=== PATIENT | female | born 1955 | race Native Hawaiian/Other Pacific Islander ===

== ENCOUNTER 2016-06-20 15:00 | Emergency (ER) | payer OTHER ==
[~2016-06-20] VITALS: Ht 165.1 cm; Wt 67.6 kg
[~2016-06-20 15:00] MED LIST: ASA LO-DOSE81 MG PO; ATROVENT NAS0.03 % INH; BENTYL10 MG PO; BENZONATATE200 MG PO; BUDE1AER5 INH; CLOP75TA2 PO; CODEINE PO; COMBIVENT INH; COZAAR100 MG PO; FLUD0.1T PO; FLUT0.05 NAS; FLUTICASONE50 MCG INH; GABA400C2 PO; HYDR-2748 PO; INDO25CA21 PO; LEVAQUIN750 MG PO; METO10TA26 PO; METO50TA63 PO; MOBIC15 MG PO; MONT10TA PO; NITROSTAT0.4 MG SL; PANT40TA PO; PEPCID40 MG PO; PERCOCET1 TA3 PO; POT CHLORIDE10 MEQ OR; PREDNISONE5 M1 PO; PROMETHAZINE25 MG PO; QUETIAPINE200 MG OR; SERT50TA PO; SIMV40TA57; SIMV40TA57 PO; SPIR50TA8 PO; TRAM50TA PO; XANAX2 MG PO; ZOLP10TA2 PO; [UNRECOGNIZED DRUG - CODE] OR; [UNRECOGNIZED DRUG - OTHER] PO
[2016-06-20 15:13] VITALS: BP 117/59; TEMP 98.8
[2016-06-20 15:55] LABS: PLATELET COUNT 344 K/uL (152-353)
[2016-06-20 16:15] LABS: POTASSIUM 3.5 mmol/L (3.6-5.2); SODIUM 120 mmol/L (136-145)
[2016-06-20 16:40] LABS: PARTIAL THROMBOPLASTIN TIME 27.9 SECONDS (24.5-33.6)
== END 2016-06-20 16:00 | disposition left against medical advice (07) ==
LOC: ED 15:00
PROVIDERS: Emergency Medicine
DX: R56.9 Unspecified convulsions (principal); R07.89 Other chest pain; R06.02 Shortness of breath
CPT/HCPCS: 36415; 80053; 82550; 82553; 83880; 84484; 85027; 85610; 85730; 99283

== ENCOUNTER 2016-09-28 21:44 | Emergency (ER) | payer OTHER ==
[~2016-09-28] VITALS: Ht 165.1 cm; Wt 72.6 kg
[2016-09-28] MEDS ORDERED: OMEPRAZOLE20 M1 OR (22:13)
[2016-09-28] MEDS ORDERED: LOSA50TA PO (22:13)
[2016-09-28] MEDS ORDERED: GABA400C2 PO (22:14)
[2016-09-28] MEDS ORDERED: SEROQUEL300 MG OR (22:14)
[2016-09-28] MEDS ORDERED: GLIP10TA55 PO (22:15)
[2016-09-28 23:41] VITALS: BP 104/65; TEMP 98.4
== END 2016-09-28 23:41 | disposition home or self-care (01) ==
LOC: ED 21:44
DX: S93.492A Sprain of other ligament of left ankle, initial encounter (principal); S93.692A Other sprain of left foot, initial encounter; S86.812A Strain of other muscle(s) and tendon(s) at lower leg level, left leg, initial encounter; W18.39XA Other fall on same level, initial encounter; Y92.098 Other place in other non-institutional residence as the place of occurrence of the external cause; Y93.89 Activity, other specified; Y99.8 Other external cause status
CPT/HCPCS: 96372; 99283; J1885

== ENCOUNTER 2017-01-11 21:33 | Emergency (ER) | payer OTHER ==
[~2017-01-11] VITALS: Ht 165.1 cm; Wt 69.4 kg
[~2017-01-11 21:33] MED LIST changes: +GLIP10TA55 PO; +LOSA50TA PO; +OMEPRAZOLE20 M1 OR; +SEROQUEL300 MG OR
[2017-01-11 23:28] VITALS: BP 111/58; TEMP 98.6
== END 2017-01-11 23:36 | disposition home or self-care (01) ==
LOC: ED 21:33
DX: S51.812A Laceration without foreign body of left forearm, initial encounter (principal); W22.8XXA Striking against or struck by other objects, initial encounter; Y92.89 Other specified places as the place of occurrence of the external cause
CPT/HCPCS: 99282

== ENCOUNTER 2017-04-08 14:43 | Emergency (ER) | payer OTHER ==
[~2017-04-08] VITALS: Ht 165.1 cm; Wt 61.2 kg
[2017-04-08 15:22] LABS: PLATELET COUNT 314 K/uL (152-353)
[2017-04-08 15:30] LABS: POTASSIUM 3.4 mmol/L (3.6-5.2); SODIUM 128 mmol/L (136-145)
[2017-04-08 16:09] VITALS: BP 118/74; TEMP 97.8
== END 2017-04-08 16:13 | disposition home or self-care (01) ==
LOC: ED 14:43
DX: S20.211A Contusion of right front wall of thorax, initial encounter (principal)
CPT/HCPCS: 36415; 80053; 85027; 93005; 99283

== ENCOUNTER 2017-08-19 16:08 | Emergency (ER) | payer OTHER ==
[~2017-08-19] VITALS: Ht 165.1 cm; Wt 63.5 kg
[2017-08-19 16:22] VITALS: TEMP 97.5
[2017-08-19 17:50] VITALS: BP 112/70
== END 2017-08-19 18:12 | disposition home or self-care (01) ==
LOC: ED 16:08
DX: S96.811A Strain of other specified muscles and tendons at ankle and foot level, right foot, initial encounter (principal); S20.212A Contusion of left front wall of thorax, initial encounter; S20.211A Contusion of right front wall of thorax, initial encounter; S90.01XA Contusion of right ankle, initial encounter; S90.31XA Contusion of right foot, initial encounter; R51 Headache; W18.39XA Other fall on same level, initial encounter; Y92.098 Other place in other non-institutional residence as the place of occurrence of the external cause
CPT/HCPCS: 80307; 80320; 96372; 99283; J1885

== ENCOUNTER 2018-06-02 17:45 | Emergency (ER) | payer OTHER ==
[~2018-06-02] VITALS: Ht 157.5 cm; Wt 64.4 kg
[2018-06-02 18:02] VITALS: BP 138/77; TEMP 97.2
[2018-06-02 18:48] LABS: PLATELET COUNT 253 K/uL (152-353)
[2018-06-02 18:54] LABS: POTASSIUM 3.7 mmol/L (3.6-5.2)
== END 2018-06-02 19:51 | disposition home or self-care (01) ==
LOC: ED 17:45
PROVIDERS: Internal Medicine
DX: E87.1 Hypo-osmolality and hyponatremia (principal); R41.82 Altered mental status, unspecified
CPT/HCPCS: 36415; 80053; 85027; 99283

== ENCOUNTER 2018-08-04 17:04 | Emergency (ER) | payer OTHER ==
[~2018-08-04] VITALS: Ht 157.5 cm; Wt 64.4 kg
[2018-08-04 19:15] VITALS: BP 106/75; TEMP 10098
== END 2018-08-04 19:19 | disposition home or self-care (01) ==
LOC: ED 17:04
DX: R05 Cough (principal); M54.5 Low back pain
CPT/HCPCS: 36415; 87502; 99283; J1885

== ENCOUNTER 2019-01-03 16:19 | Emergency (ER) | payer OTHER ==
[~2019-01-03] VITALS: Ht 165.1 cm; Wt 59.4 kg
[2019-01-03 16:24] VITALS: TEMP 97.9
[2019-01-03 16:55] LABS: PLATELET COUNT 321 K/uL (152-353)
[2019-01-03 17:30] VITALS: BP 94/50
[2019-01-03 17:54] LABS: SODIUM 125 mmol/L (136-145)
== END 2019-01-03 17:52 | disposition home or self-care (01) ==
LOC: ED 16:19
PROVIDERS: Student in an Organized Health Care Education/Training Program
DX: R55 Syncope and collapse (principal)
CPT/HCPCS: 36415; 80053; 83735; 84443; 84484; 85027; 93005; 99283

== ENCOUNTER 2019-01-09 08:32 | Outpatient (CLI) | payer OTHER | END 2019-01-09 23:34 | disposition home or self-care (01) | LOC: US 08:32 | DX: R10.30 Lower abdominal pain, unspecified (principal); N93.9 Abnormal uterine and vaginal bleeding, unspecified ==

== ENCOUNTER 2019-02-21 15:00 | Inpatient (IN) | payer OTHER ==
[~2019-02-21] VITALS: Ht 165.1 cm; Wt 67.8 kg
[2019-02-21 16:00] VITALS: BP 106/56; TEMP 97.6
[2019-02-21 17:10] LABS: POTASSIUM 2.6 mmol/L (3.6-5.2)
[2019-02-21 17:11] LABS: PLATELET COUNT 316 K/uL (152-353)
[2019-02-21 18:32] VITALS: BP 106/56; TEMP 97.6; Ht 165.1 cm; Wt 67.8 kg
[2019-02-21 20:00] VITALS: BP 97/56; TEMP 97.2
[2019-02-22] VITALS: BP 114/70; TEMP 97.4
[2019-02-22 04:00] VITALS: BP 95/69; TEMP 98.3
[2019-02-22 04:26] LABS: PLATELET COUNT 291 K/uL (152-353)
[2019-02-22 04:44] LABS: POTASSIUM 3.8 mmol/L (3.6-5.2)
[2019-02-22 08:00] VITALS: BP 108/69
[2019-02-22 12:00] VITALS: BP 104/61; TEMP 97.6
[2019-02-22] MEDS ORDERED: IPRA18AE INH (12:40)
[2019-02-22] MEDS ORDERED: METOCLOPRAM10 MG PO (12:47)
[2019-02-22] MEDS ORDERED: KAPSPARGO SPRIN50 MG PO (12:48)
[2019-02-22] MEDS ORDERED: TRAMADOL HYDROC50 MG PO (12:50)
[2019-02-22] MEDS ORDERED: PANTOPRAZOLE 40MG TA PO (12:51)
[2019-02-22] MEDS ORDERED: XANAX2 MG PO (12:52)
[2019-02-22] MEDS ORDERED: RANI150T78 PO (12:54)
[2019-02-22] MEDS ORDERED: SERT100T PO (12:56)
[2019-02-22] MEDS ORDERED: GABA400C2 PO (13:00)
[2019-02-22 16:00] VITALS: BP 121/71; TEMP 97.3
[2019-02-22 20:00] VITALS: BP 118/68; TEMP 98.6
== END 2019-02-22 20:22 | disposition left against medical advice (07) | DRG 315 ==
LOC: MED/SURG 15:00
PROVIDERS: ADMIT Internal Medicine
DX: I95.89 Other hypotension (principal); E87.1 Hypo-osmolality and hyponatremia; E87.6 Hypokalemia; J43.8 Other emphysema; I10 Essential (primary) hypertension; I25.10 Atherosclerotic heart disease of native coronary artery without angina pectoris; R55 Syncope and collapse; A08.8 Other specified intestinal infections; Z72.0 Tobacco use; K21.9 Gastro-esophageal reflux disease without esophagitis; E11.42 Type 2 diabetes mellitus with diabetic polyneuropathy; F41.8 Other specified anxiety disorders; N32.89 Other specified disorders of bladder
CPT/HCPCS: 36415; 80053; 81000; 82272; 82533; 83735; 84443; 85027; 85610; 87015; 87045; 87088; 87324; 87328; 87329; 87449; 87899; 93005; J0744; J1650; Q9963

== ENCOUNTER 2019-06-01 05:20 | Outpatient (CLI) | payer OTHER ==
[~2019-06-01 05:20] MED LIST changes: +IPRA18AE INH; +KAPSPARGO SPRIN50 MG PO; +METOCLOPRAM10 MG PO; +PANTOPRAZOLE 40MG TA PO; +RANI150T78 PO; +SERT100T PO; +TRAMADOL HYDROC50 MG PO
== END 2019-06-01 05:28 | disposition short-term general hospital (02) ==
LOC: AMB 05:20
DX: R07.89 Other chest pain (principal); W18.09XA Striking against other object with subsequent fall, initial encounter; Y92.89 Other specified places as the place of occurrence of the external cause
CPT/HCPCS: A0425; A0427

== ENCOUNTER 2019-06-01 05:31 | Emergency (ER) | payer OTHER ==
[~2019-06-01] VITALS: Ht 165.1 cm; Wt 68.0 kg
[2019-06-01 05:31] VITALS: TEMP 96.6
[2019-06-01 06:40] LABS: PLATELET COUNT 502 K/uL (152-353)
[2019-06-01 06:45] LABS: POTASSIUM 3.4 mmol/L (3.6-5.2)
[2019-06-01 09:09] VITALS: BP 121/74
== END 2019-06-01 09:09 | disposition home or self-care (01) ==
LOC: ED 05:31
PROVIDERS: Family Medicine
DX: S22.078A Other fracture of T9-T10 vertebra, initial encounter for closed fracture (principal); N39.0 Urinary tract infection, site not specified; E87.6 Hypokalemia; W18.09XA Striking against other object with subsequent fall, initial encounter; F51.3 Sleepwalking [somnambulism]; Y92.89 Other specified places as the place of occurrence of the external cause
CPT/HCPCS: 80053; 81000; 85027; 87086; 87088; 96360; 96365; 99284; J0744; Q9963

== ENCOUNTER 2019-06-02 18:07 | Emergency (ER) | payer OTHER ==
[~2019-06-02] VITALS: Ht 165.1 cm; Wt 68.0 kg
[2019-06-02 18:39] VITALS: BP 110/66; TEMP 98.1
[2019-06-02 20:53] LABS: PLATELET COUNT 410 K/uL (152-353)
[2019-06-02 20:58] LABS: POTASSIUM 3.7 mmol/L (3.6-5.2); SODIUM 121 mmol/L (136-145)
[2019-06-02 21:17] LABS: PARTIAL THROMBOPLASTIN TIME 25.6 SECONDS (24.5-33.6)
== END 2019-06-02 21:54 | disposition home or self-care (01) ==
LOC: ED 18:07
PROVIDERS: Hospitalist
DX: E86.0 Dehydration (principal); D72.828 Other elevated white blood cell count; R07.89 Other chest pain
CPT/HCPCS: 80053; 82550; 82553; 83880; 84484; 85027; 85610; 85730; 93005; 96375; 99284; J1885; J2270; J2405

== ENCOUNTER 2019-07-02 11:01 | Outpatient (CLI) | payer OTHER | END 2019-07-02 19:38 | disposition home or self-care (01) | LOC: MRI 11:01 | DX: M54.6 Pain in thoracic spine (principal); S22.070A Wedge compression fracture of T9-T10 vertebra, initial encounter for closed fracture ==

== ENCOUNTER 2019-10-25 17:12 | Emergency (ER) | payer OTHER ==
[~2019-10-25] VITALS: Ht 165.1 cm; Wt 68.0 kg
[~2019-10-25 17:12] MED LIST changes: -SEROQUEL300 MG OR; +SEROQUEL300 MG PO
[2019-10-25] MEDS ORDERED: ONDA4TAB3 PO (17:32)
[2019-10-25] MEDS ORDERED: FURO40TA93 PO (17:33)
[2019-10-25] MEDS ORDERED: TIZA4TAB5 PO (17:33)
[2019-10-25] MEDS ORDERED: BUDE1AER5 INH (17:34)
[2019-10-25] MEDS ORDERED: HYDR-3182 PO (17:38)
[2019-10-25 17:49] LABS: PLATELET COUNT 402 K/uL (152-353)
[2019-10-25 17:55] LABS: POTASSIUM 3.7 mmol/L (3.6-5.2)
[2019-10-25 18:30] LABS: PARTIAL THROMBOPLASTIN TIME 24.5 SECONDS (24.5-33.6)
[2019-10-28 00:32] VITALS: BP 119/70; TEMP 98.8
[2019-10-28] MEDS ORDERED: TRAMADOL HYDROC50 MG PO (14:36)
[2019-10-28] MEDS ORDERED: HYDROCHLOROT12.5 M1 PO (14:36)
[2019-10-28] MEDS ORDERED: GABA400C2 PO (14:37)
[2019-10-28] MEDS ORDERED: SIMV40TA57 (14:37)
[2019-10-28] MEDS ORDERED: CLOP75TA2 PO (14:37)
[2019-10-28] MEDS ORDERED: [UNRECOGNIZED DRUG - CODE] PO (14:38)
[2019-10-28] MEDS ORDERED: ALPR0.5T24 PO (14:38)
[2019-10-28] MEDS ORDERED: HYDR50CA21 PO (14:41)
[2019-10-28] MEDS ORDERED: ALBU0.0813 INH (14:45)
== END 2019-10-28 18:05 | disposition short-term general hospital (02) ==
LOC: ED 17:12
PROVIDERS: Family Medicine
DX: F25.8 Other schizoaffective disorders (principal); F13.90 Sedative, hypnotic, or anxiolytic use, unspecified, uncomplicated; Z03.818 Encounter for observation for suspected exposure to other biological agents ruled out
CPT/HCPCS: 80053; 80307; 80320; 80329; 81000; 85027; 85610; 85730; 87635; 93005; 96372; 99285; J1200; J1630; J3486; U0002

== ENCOUNTER 2020-09-14 14:14 | Inpatient (IN) | payer OTHER ==
[~2020-09-14] VITALS: Ht 165.1 cm; Wt 60.5 kg
[2020-09-14 14:14] VITALS: BP 130/72; TEMP 97.3
[~2020-09-14 14:14] MED LIST changes: +ALBU0.0813 INH; +ALPR0.5T24 PO; +FURO40TA93 PO; +HYDR-3182 PO; +HYDR50CA21 PO; +HYDROCHLOROT12.5 M1 PO; +ONDA4TAB3 PO; +TIZA4TAB5 PO; +[UNRECOGNIZED DRUG - CODE] PO
[2020-09-14 14:46] LABS: PLATELET COUNT 315 K/uL (152-353)
[2020-09-14 14:54] LABS: POTASSIUM 3.1 mmol/L (3.6-5.2)
[2020-09-14 15:00] VITALS: BP 144/72
[2020-09-14 15:45] VITALS: BP 141/85
[2020-09-14 16:30] VITALS: BP 136/88
[2020-09-14 18:56] VITALS: BP 114/56; TEMP 98.3; Ht 165.1 cm; Wt 60.5 kg
[2020-09-14 19:34] LABS: POTASSIUM 3.7 mmol/L (3.6-5.2)
[2020-09-14 20:00] VITALS: BP 104/54; TEMP 98.1
--- NOTE | 2020-09-14 20:40 | NUR ---
PT AWAKE LAYING IN BED WITH NO ACUTE DISTRESS NOTED, DENIES ANY PROBLEMS, RESP RATE NONLABORED, 22G IV INTACT TO R AC AND 22G IV INTACT TO L AC WITH NO PROBLEMS NOTED TO SITES, GAVE NIGHTLY PO MEDICATIONS WHOLE WITH WATER WITH NO PROBLEMS NOTED, WILL MONITOR CLOSELY, RAILS UP X3, BED IN LOW POSITION, CALL LIGHT IN REACH, ENCOURAGED TO CALL NEEDED OR FOR ASSIST TO BATHROOM PT ACKNOWLEDGES UNDERSTANDING.
--- NOTE | 2020-09-14 22:25 | NUR ---
AWAKE LAYING IN BED WITH NO ACUTE DISTRESS NOTED, PT DENIES ANY PROBLEMS OR NEEDS AT THIS TIME, OFFERED TO PLACE GOWN ON PT BUT PT DOES NOT WANT TO CHANGE INTO A GOWN. IV SITES INTACT TO R AND L AC WITH NO PROBLEMS NOTED AND FLUID ONGOING TO IV SITE IN R AC, RESP RATE NONLABORED, WILL MONITOR CLOSELY, RAILS UP X3, BED IN LOW POSITION, CALL LIGHT IN REACH, ENCOURAGED TO CALL NEEDED, PT ACKNOWLEDGES UNDERSTANDING.
[2020-09-15] VITALS (8 sets, daily range): BP systolic 93–135; BP diastolic 47–62; TEMP 97.6–98.5
[2020-09-15 03:07] LABS: POTASSIUM 3.4 mmol/L (3.6-5.2)
--- NOTE | 2020-09-15 03:29 | NUR ---
PT AWAKE LAYING IN BED ON L SIDE WITH NO S/S OF DISTRESS OR PROBLEMS NOTED, DENIES ANY NEEDS AT THIS TIME, RESP RATE NONLABORED, 22G IV LOCK INTACT TO L AC AND 22G IV INTACT TO R AC WITH FLUID INFUSING AT 100ML/HR NO PROBLEMS NOTED TO EITHER SITES, ENCOURAGED TO CALL NEEDED, RAILS UP X3, BED IN LOW POSITION WITH ALARM ON, WILL MONITOR CLOSELY, CALL LIGHT IN REACH. PT ACKNOWLEDGES UNDERSTANDING.
[2020-09-15 07:04] LABS: PLATELET COUNT 244 K/uL (152-353)
[2020-09-15 07:11] LABS: POTASSIUM 3.8 mmol/L (3.6-5.2)
--- NOTE | 2020-09-15 09:54 | NUR ---
WHILE IN PT'S ROOM MEASURING URINARY OUTPUT, RN FIELD NOTICED THAT IV IN LT AC WAS LEAKING BLOOD. IV WAS REMOVED BY RN FIELD AND NURSE WAS NOTIFIED OF REMOVAL.
[2020-09-15 13:30] LABS: POTASSIUM 3.4 mmol/L (3.6-5.2)
[2020-09-15 19:24] LABS: POTASSIUM 3.4 mmol/L (3.6-5.2)
--- NOTE | 2020-09-15 23:00 | NUR ---
RESTING WITH EYES CLOSED, NO S/S OF PAIN OR DISTRESS NOTED, RESP RATE NONLABORED, WILL MONITOR CLOSELY, RAILS UP X3, BED IN LOW POSITION, CALL LIGHT IN REACH.
[2020-09-16] VITALS: BP 102/65; TEMP 97.9
--- NOTE | 2020-09-16 01:26 | NUR ---
PT RESTING WITH EYES CLOSED IN BED IN POSITION OF COMFORT, AROUSES EASILY TO SHELL MACHINE OPERATOR BEING IN ROOM, NOTE PT NOW LONGER DROWSY NOTED AT START OF SHIFT AND SHELL MACHINE OPERATOR IS NOW ABLE TO UNDERSTAND MOST OF WHAT PT SAYS, DISORIENTED TO PLACE AND TIME REORIENTED PT AT THIS TIME. SKIN WARM AND DRY, RESP RATE NONLABORED, IV LOCK INTACT TO R AC 22G, 20G IV INTACT TO L AC AREA WITH FLUID ONGOING(NS WITH 20MEQ KCL) AT 100ML/HR, DENIES ANY NEEDS OR PROBLEMS, ADJUSTED AC DUE TO PT STATES SHE IS HOT. PT STATUS HAS IMPROVED SINCE START OF SHIFT, CURRENT STATUS IS MORE LIKE WHEN SHE WAS ADMITTED ON 09/14 AND SHELL MACHINE OPERATOR HAD 1ST ENCOUNTER WITH PT. ENCOURAGED TO CALL NEEDED, CALL LIGHT IN REACH, BED IN LOW POSITION, RAILS UP X3.
[2020-09-16 01:41] LABS: POTASSIUM 3.3 mmol/L (3.6-5.2)
[2020-09-16 04:00] VITALS: BP 97/47; TEMP 98.1
--- NOTE | 2020-09-16 05:00 | NUR ---
RESTING WITH NO DISTRESS NOTED, IV SITES INTACT WITH FLUID ONGOING, RESP RATE NONLABORED, WILL MONITOR, RAILS UP X3, BED IN LOW POSITION, CALL LIGHT IN REACH.
[2020-09-16 07:29] LABS: PLATELET COUNT 250 K/uL (152-353)
[2020-09-16 07:49] LABS: POTASSIUM 3.8 mmol/L (3.6-5.2)
[2020-09-16 08:00] VITALS: BP 97/47; TEMP 98.1
[2020-09-16 12:00] VITALS: BP 112/59; TEMP 98
[2020-09-16 13:39] LABS: POTASSIUM 3.5 mmol/L (3.6-5.2)
--- NOTE | 2020-09-16 14:30 | NUR ---
DISCHARGE INSTRUCTIONS PROVIDED TO PATIENT WITH FOLLOW UP APPOINTMENT CARD. PATIENT VERBALIZED UNDERSTANDING. 22G IV TO RAC D/C WITH TIP INTACT. 20G TO LAC D/C WITH TIP INTACT. PATIENT TOLERATED WELL. PATIENT AWAITING RIDE.
--- NOTE | 2020-09-16 14:40 | NUR ---
PATIENT DISCHARGED TO HOME VIA WHEELCHAIR TO PERSONAL VEHICLE WITH FRIEND DRIVING. PERSONAL BELONGINGS WITH PATIENT.
== END 2020-09-16 14:40 | disposition home or self-care (01) | DRG 392 ==
LOC: ED 14:20 → EDBD 14:20 → MED/SURG 16:25 → EDBD 16:25 → MED/SURG 09-16 14:40
PROVIDERS: Emergency Medicine Emergency Medical Services; ADMIT Internal Medicine Endocrinology, Diabetes & Metabolism; ATTEND Internal Medicine Endocrinology, Diabetes & Metabolism
DX: K52.89 Other specified noninfective gastroenteritis and colitis (principal); E87.1 Hypo-osmolality and hyponatremia; E87.6 Hypokalemia; J44.9 Chronic obstructive pulmonary disease, unspecified; I11.0 Hypertensive heart disease with heart failure; I50.9 Heart failure, unspecified; Z72.0 Tobacco use; I25.10 Atherosclerotic heart disease of native coronary artery without angina pectoris; E78.49 Other hyperlipidemia; G40.802 Other epilepsy, not intractable, without status epilepticus; F20.89 Other schizophrenia; E83.42 Hypomagnesemia; Z86.73 Personal history of transient ischemic attack (TIA), and cerebral infarction without residual deficits; E11.9 Type 2 diabetes mellitus without complications
CPT/HCPCS: 36415; 80048; 80053; 83690; 83735; 85027; 87635; 96360; 96375; 99284; J1650; J2405; J3475; Q0177; Q9963; U0003

== ENCOUNTER 2020-09-28 14:09 | Outpatient (CLI) | payer OTHER | END 2020-09-28 20:52 | disposition home or self-care (01) | LOC: CT 14:09 | PROVIDERS: ATTEND Internal Medicine | DX: Z03.89 Encounter for observation for other suspected diseases and conditions ruled out (principal); R40.4 Transient alteration of awareness; M54.89 Other dorsalgia ==

== ENCOUNTER 2020-10-27 17:34 | Emergency (ER) | payer OTHER ==
[~2020-10-27] VITALS: Ht 165.1 cm; Wt 63.0 kg
[2020-10-27 17:39] VITALS: TEMP 98
[2020-10-27 18:05] VITALS: BP 100/66
== END 2020-10-27 18:09 | disposition home or self-care (01) ==
LOC: ED 17:34
DX: R53.1 Weakness (principal); Z53.21 Procedure and treatment not carried out due to patient leaving prior to being seen by health care provider
CPT/HCPCS: 99281

== ENCOUNTER 2021-05-19 11:07 | Outpatient (CLI) | payer OTHER ==
[2021-05-19 11:31] LABS: PLATELET COUNT 363 K/uL (152-353)
== END 2021-05-19 20:24 | disposition home or self-care (01) ==
LOC: LABW 11:07
PROVIDERS: ATTEND Internal Medicine
DX: R63.5 Abnormal weight gain (principal); E22.2 Syndrome of inappropriate secretion of antidiuretic hormone; E27.40 Unspecified adrenocortical insufficiency; E53.8 Deficiency of other specified B group vitamins; I48.91 Unspecified atrial fibrillation; D64.89 Other specified anemias; Z79.899 Other long term (current) drug therapy
CPT/HCPCS: 80053; 82607; 82746; 83036; 84439; 84443; 85027

== ENCOUNTER 2021-08-29 21:49 | Emergency (ER) | payer OTHER ==
[~2021-08-29] VITALS: Ht 165.1 cm; Wt 68.0 kg
[2021-08-29 22:42] LABS: PLATELET COUNT 310 K/uL (152-353)
[2021-08-29 22:58] LABS: POTASSIUM 5.2 mmol/L (3.6-5.2)
[2021-08-30 01:15] VITALS: BP 160/113; TEMP 98.9
== END 2021-08-30 01:15 | disposition short-term general hospital (02) ==
LOC: ED 21:49
PROVIDERS: Emergency Medicine
PROC: 0T9B70Z Drainage of Bladder with Drainage Device, Via Natural or Artificial Opening (ICD-10-PCS; principal; 2021-08-29)
PROC: 0D9670Z Drainage of Stomach with Drainage Device, Via Natural or Artificial Opening (ICD-10-PCS; 2021-08-29)
PROC: 0BH17EZ Insertion of Endotracheal Airway into Trachea, Via Natural or Artificial Opening (ICD-10-PCS; 2021-08-29)
PROC: 5A1935Z Respiratory Ventilation, Less than 24 Consecutive Hours (ICD-10-PCS; 2021-08-29)
DX: N17.8 Other acute kidney failure (principal); I50.9 Heart failure, unspecified; J69.0 Pneumonitis due to inhalation of food and vomit; D64.89 Other specified anemias; E87.2 Acidosis; Z11.52 Encounter for screening for COVID-19
CPT/HCPCS: 36415; 36600; 43754; 51702; 80053; 80307; 81000; 82805; 83880; 84484; 85027; 85610; 87040; 87088; 87502; 87635; 93005; 94002; 94760; 96361; 96365; 96375; 99285; J1940; J3490; U0003

== ENCOUNTER 2021-11-01 10:07 | Outpatient (CLI) | payer OTHER ==
[2021-11-01 10:33] LABS: PLATELET COUNT 332 K/uL (152-353)
[2021-11-01 10:35] LABS: POTASSIUM 4.3 mmol/L (3.6-5.2)
== END 2021-11-01 18:51 | disposition home or self-care (01) ==
LOC: LABW 10:07
PROVIDERS: ATTEND Physician Assistant Medical
DX: N17.8 Other acute kidney failure (principal)
CPT/HCPCS: 36415; 80053; 84100; 85027